=== PATIENT | female | born 1945 | race Caucasian/White ===

== ENCOUNTER 2024-08-05 10:11 | Day surgery (SDC) | payer MEDICARE, OTHER ==
[~2024-08-05] VITALS: Ht 157.5 cm; Wt 64.4 kg
[~2024-08-05 10:11] MED LIST: ATIV1TAB10 PO; DILT120T PO; ELIQ5TAB PO; ESTR62CR; LEXA1TAB PO; LR 1,000 ML IV SCH; MEMA10TA PO
[2024-08-05] MEDS: PHENYLEPHRINE 2.5% OPHTH SOL 2ML OD SCH (11:33)
[2024-08-05] MEDS: TETRACAINE 0.5% OPHTH SOLN 4ML OD SCH (11:33)
[2024-08-05] MEDS: FLURBIPROFEN 0.03% OPHTH SOLN 2.5 ML OD SCH (11:33)
[2024-08-05] MEDS: CYCLOPENTOLATE 1% OPHTH SOLN 2ML BTL OD SCH (11:33)
[2024-08-05] MEDS ORDERED: fentaNYL 100 MCG/2 ML INJECTION As Ordered ONE (12:53)
[2024-08-05] MEDS ORDERED: MIDAZOLAM INJ 2MG/2ML VIAL As Ordered ONE (12:53)
[2024-08-05] MEDS: LIDOCAINE 1% SDV 5ML VIAL As Ordered ONE (13:39)
[2024-08-05] MEDS: CEFUROXIME 1MG/0.1ML INTRACAMERAL INJ As Ordered ONE (13:40)
[2024-08-05 13:55] VITALS: BP 171/75; TEMP 97.4; O2SAT 100
== END 2024-08-05 14:15 | disposition home or self-care (01) ==
LOC: M SDC 10:11
PROVIDERS: ATTEND Ophthalmology
DX: H25.9 Unspecified age-related cataract (principal); I48.0 Paroxysmal atrial fibrillation; I10 Essential (primary) hypertension; E78.00 Pure hypercholesterolemia, unspecified; Z79.01 Long term (current) use of anticoagulants; Z79.899 Other long term (current) drug therapy; F41.9 Anxiety disorder, unspecified; F32.A Depression, unspecified; Z88.8 Allergy status to other drugs, medicaments and biological substances; Z87.891 Personal history of nicotine dependence
CPT/HCPCS: 66984; J0697; J2250; J3010; V2632